=== PATIENT | female | born 1935 | race Hispanic/Latino ===

== ENCOUNTER → 2019-05-07 | Outpatient (CLI) | payer MEDICARE ==
[~2019-05-07] MED LIST: AMITZA PO; AMLO5TAB9 PO; ATROVASTATIN PO; ESOM40CA PO; FURO20TA4 PO; FURO40TA5 PO; I CAP PO; INSU100I13 SQ; LOSA25TA41 PO; METO-391 PO; OMEGA ACID ETHYL PO; REGADENOSON 0.4 MG/5 ML PF SYG IVP ONE; REGADENOSON 0.4 MG/5 ML PF SYG IVP SCH; SENN-178 PO
== END | disposition home or self-care (01) ==
LOC: SHCH 08:36
PROVIDERS: ATTEND Internal Medicine Cardiovascular Disease
DX: R06.02 Shortness of breath (principal)
CPT/HCPCS: 78452; 93017; 96374; A9500 ×2; J2785 ×2

== ENCOUNTER → 2019-05-10 | Outpatient (CLI) | payer MEDICARE ==
[~2019-05-10] MED LIST changes: -REGADENOSON 0.4 MG/5 ML PF SYG IVP ONE; -REGADENOSON 0.4 MG/5 ML PF SYG IVP SCH
== END | disposition home or self-care (01) ==
LOC: OIH 11:24
PROVIDERS: ATTEND Internal Medicine Cardiovascular Disease
DX: I11.0 Hypertensive heart disease with heart failure (principal); I50.33 Acute on chronic diastolic (congestive) heart failure
CPT/HCPCS: 71046